=== PATIENT | male | born 1990 | race Caucasian/White ===

== ENCOUNTER 2022-01-02 18:28 | Emergency (ER) | payer OTHER ==
[2022-01-02 18:51] VITALS: BP 114/68; PULSE 63; RESP 20; TEMP 97.9; BMI 20.9
[2022-01-02] MEDS ORDERED: cloNIDine HCL 0.1 MG TABLET PO ONE (19:30)
[2022-01-02] MEDS ORDERED: cloNIDine HCL 0.1 MG TABLET ONE (19:33)
== END 2022-01-02 20:11 | disposition home or self-care (01) ==
LOC: JERFT 18:28
DX: F11.20 Opioid dependence, uncomplicated (principal)
CPT/HCPCS: 99283-25; J0735